=== PATIENT | male | born 1955 | race Caucasian/White ===

== ENCOUNTER 2017-04-02 08:30 | Day surgery (SDC) | payer OTHER ==
[~2017-04-02] VITALS: Ht 167.6 cm; Wt 63.0 kg
[2017-04-02] VITALS (10 sets, daily range): BP systolic 94–134; BP diastolic 54–74; PULSE 63–69; RESP 7–19; Ht 167.6 cm; Wt 63.0 kg
[~2017-04-02 08:30] MED LIST: ACYC400T2 PO; CEFAZOLIN 2 GM/50 ML (PMX) 50 ML IVPB ONE; DIPHENHYDRAMINE 50 MG INJ IV PRN; FENTAnyl 50 MCG/ML VIAL IV PRN; FINA1TAB16 PO; HYDROmorphONE (0.2 MG/ML) 10ML SYG IV PRN; MEPERIDINE 25 MG INJ IV PRN; ONDANSETRON 4 MG INJ IV PRN; OXYCODONE/ACETAMINOPHEN (5/325) TAB PO PRN; PROCHLORPERAZINE 10 MG INJ IV PRN; SOD CHLORIDE 0.9% 1,000 ML IV SCH; TAMS-14 PO
[2017-04-02] MEDS ORDERED: LIDOCAINE 2% (SDV) 5 ML INJ ONE (08:35)
[2017-04-02] MEDS ORDERED: PROPOFOL 20 ML ONE (08:35)
[2017-04-02] MEDS ORDERED: MIDAZOLAM 1 MG/ML 2 ML INJ ONE (08:36)
[2017-04-02] MEDS ORDERED: FENTAnyl 50 MCG/ML VIAL ONE (08:36)
[2017-04-02] MEDS ORDERED: CEFAZOLIN 1 GM INJ ONE (08:37)
[2017-04-02] MEDS ORDERED: FINA5TAB4 PO (08:57)
[2017-04-02] MEDS ORDERED: ACYC400T2 PO (08:57)
[2017-04-02] MEDS ORDERED: LORA10TA3 PO (08:57)
--- NOTE | 2017-04-02 09:53 | RADRPT ---
PROCEDURE: XR Chest. CLINICAL INDICATION: Preoperative TECHNIQUE: Single frontal view of the chest was obtained COMPARISON: None FINDINGS: The left lower chest wall and costophrenic angle was not completely included. The heart and mediastinum are within normal limits. The lungs are clear. There is no pleural effusion or pneumothorax. RPTAT: AA IMPRESSION: No acute disease. .Nhan Harris MD, MD Date Time Electronically viewed and signed by .Nhan Harris MD, on 04/02/2017 09:52 .S/
[2017-04-02] MEDS ORDERED: LIDOCAINE 2% (MDV) 20 ML INJ ONE (11:22)
[2017-04-02] MEDS ORDERED: BUPIVACAINE 0.5% (SDV) 30 ML INJ ONE (11:22)
[2017-04-02] MEDS ORDERED: BUPIVACAINE 0.5% (SDV) 30 ML INJ INJ ONE (12:15)
[2017-04-02] MEDS ORDERED: BUPIVACAINE 0.25% (MPF) 30 ML INJ INJ ONE (12:15)
[2017-04-02] MEDS ORDERED: LIDOCAINE 2% (MDV) 20 ML INJ INJ ONE (12:15)
[2017-04-02] MEDS ORDERED: ONDANSETRON 4 MG INJ ONE (12:19)
[2017-04-02] MEDS ORDERED: KETOROLAC 30 MG INJ ONE (12:20)
[2017-04-02] MEDS ORDERED: METOCLOPRAMIDE 10 MG INJ ONE (12:20)
--- NOTE | 2017-04-02 12:28 | OPR ---
Date/Time of Note Date/Time of Note DATE: 04/02/17 TIME: 12:27 Operative Report Procedure Date: Apr 02, 2017 Preoperative Diagnosis left scalp mass Postoperative Diagnosis same Operation Performed excision of left scalp mass 3 cm incision and 2 cm mass localized adjacent tissue transfer with the use of skin flaps therapeutic injection of subcutaneous local anesthesia Surgeon: Fay GOMEZ Specimens left scalp mass Fay GOMEZ Apr 02, 2017 12:28
[2017-04-02] MEDS ORDERED: ACETAMINOPHEN/CODEINE #3 TAB PO ONE (12:30)
--- NOTE | 2017-04-02 14:05 | RADRPT ---
Vent Rate: 59 bpm RR Interval: 0 msec LA Interval: 162 msec QRS Duration: 82 msec QT Interval: 386 msec QTC Interval: 382 msec P-R-T [place]: 77 - 74 - 70 degrees Sinus bradycardia Otherwise normal ECG Electronically Signed By: Mark Brewster [id number]
--- NOTE | 2017-04-02 14:31 | OPR ---
DATE OF OPERATION: 04/02/2017 INDICATION: This is a 61-year-old male with a large scalp mass that is painful. He requests surgical excision. Risks, alternatives, benefits, and personnel were discussed with the patient. The patient expressed understanding and consents to the operation. PREOPERATIVE DIAGNOSIS: Left scalp mass. POSTOPERATIVE DIAGNOSIS: Left scalp mass. OPERATION: 1. Excision of left scalp mass with 3 cm size incision and 2 cm size mass. 2. Localized adjacent tissue transfer with the use of skin flaps with 6 sq cm defect. 3. Therapeutic injection [place] [address]. SURGEON: Radha Gorman MD SPECIMEN: Left scalp mass. COMPLICATIONS: None. ANESTHESIA: General. PROCEDURE: The patient was taken to the OR and prepped and draped in the usual sterile fashion. Surgical timeout was performed. IV antibiotics were given. Transverse incision is made over the mass with a 15 blade. Dissection cautery was carried down to the mass and circumferentially excised. There was good hemostasis. Due to tissue defect, localized adjacent tissue transfer with the use of skin flaps was performed. Multilevel closed with interrupted 3-0 Vicryl and running 4-0 Monocryl. Local anesthesia is injected into the surgical site. There was good hemostasis. Dry dressings were applied. Dictated By: RADHA DIXON/ANABEL Conf#: [id number] DID#: [id number]
== END 2017-04-02 14:20 | disposition home or self-care (01) ==
LOC: SDS 08:30
PROVIDERS: ATTEND Surgery
DX: D17.0 Benign lipomatous neoplasm of skin and subcutaneous tissue of head, face and neck (principal)
CPT/HCPCS: 14020; 71010; 88307; 93005; J0690; J1885; J2250; J2405; J2765; J3010